=== PATIENT | female | born 1965 | race Caucasian/White ===

== ENCOUNTER 2025-04-14 10:59 | Outpatient (CLI) | payer BC | END 2025-04-14 11:00 | disposition home or self-care (01) | LOC: CSHMRI 10:59 | PROVIDERS: ATTEND Student in an Organized Health Care Education/Training Program | DX: M54.2 Cervicalgia (principal); M47.812 Spondylosis without myelopathy or radiculopathy, cervical region; M48.02 Spinal stenosis, cervical region; R93.7 Abnormal findings on diagnostic imaging of other parts of musculoskeletal system | CPT/HCPCS: 72141 ==